=== PATIENT | female | born 1965 | race African-American/Black ===

== ENCOUNTER 2016-06-15 19:18 | Emergency (ER) | payer OTHER ==
[~2016-06-15] VITALS: Ht 172.7 cm; Wt 124.7 kg
[~2016-06-15 19:18] MED LIST: BENADRYL50 MG ORAL; CIPROFLOXACIN500 M2 ORAL; DIFLUCAN100 MG ORAL; NORCO 5-325 TA1 EACH ORAL; PERCOCET 5-3251 EACH ORAL; RANITIDINE HCL150 MG ORAL
[2016-06-15] MEDS ORDERED: UNOBMED (19:39)
[2016-06-15 20:00] VITALS: BP 144/69
--- NOTE | 2016-06-15 20:01 | Emergency Room Report ---
History of Present Illness General Chief Complaint: Chest Pain Source: Patient Present Illness HPI Patient is a 51-year-old female who presented after having intermittent chest pain. Patient stated that she been having intermittent pain to both legs as well as to her chest. She stated that pain moved all over. She denies any shortness of breath. Patient states that she had onset with neck movement. She states this is worse with supine position. Allergies: Coded Allergies: No Known Allergies (Unverified , 06/15/16) Patient History Past Medical History: see triage record Reviewed Nursing Documentation: PMH: Agreed, PSxH: Agreed Nursing Documentation-PMH Past Medical History: No History, Except For Hx Cardiac Problems: No Hx Hypertension: Yes Review of Systems All Other Systems: negative except mentioned in HPI Physical Exam Vital Signs Date Time Temp Pulse Resp B/P Pulse Ox O2 Delivery O2 Flow Rate FiO2 06/15/16 19:35 102 18 132/90 98 Room Air Sp02 EP Interpretation: reviewed, normal General Appearance: normal inspection, well appearing, no apparent distress, alert, GCS 15 Head: atraumatic ENT: normal ENT inspection, hearing grossly normal, normal voice Neck: normal inspection, full range of motion, supple, no bony tend Respiratory: normal inspection, lungs clear, normal breath sounds, no respiratory distress, no retraction, no wheezing Cardiovascular #1: regular rate, rhythm, no edema Gastrointestinal: normal inspection, normal bowel sounds, non tender, soft, no guarding, no hernia Genitourinary: no CVA tenderness Musculoskeletal: normal inspection, back normal, normal range of motion Neurologic: normal inspection, alert, oriented x3, responsive, quilt sewer III-XII nml as tested, speech normal Psychiatric: normal inspection, judgement/insight normal, mood/affect normal Skin: normal inspection, normal color, no rash Medical Decision Making Diagnostic Impression: Primary Impression: Atypical chest pain ER Course Patient presented for chest pain. Differential diagnosis included but was not limited to acute coronary syndrome, pulmonary embolism, pneumonia, aortic dissection, shingles, pneumothorax, aortic dissection, esophageal rupture, pericarditis. Because of complexity of patient's case laboratory testing and imaging studies were ordered. EKG interpreted by me showed normal sinus rhythm with rate of [address] or T wave changes. Labs Test 06/15/16 19:38 06/15/16 20:15 Urine HCG, Qualitative Negative Urine Opiates Screen Negative (NEGATIVE) Urine Barbiturates Screen Negative (NEGATIVE) Phencyclidine (PCP) Screen Negative (NEGATIVE) Urine Amphetamines Screen Negative (NEGATIVE) Urine Benzodiazepines Screen Negative (NEGATIVE) Urine Cocaine Screen Negative (NEGATIVE) Urine Marijuana (THC) Screen Positive (NEGATIVE) White Blood Count 9.7 K/UL (4.8-10.8) Red Blood Count 4.93 M/UL (4.20-5.40) Hemoglobin 14.3 G/DL (12.0-16.0) Hematocrit 42.8 % (37.0-47.0) Mean Corpuscular Volume 87 FL (80-99) Mean Corpuscular Hemoglobin 28.9 PG (27.0-31.0) Mean Corpuscular Hemoglobin Concent 33.3 G/DL (32.0-36.0) Red Cell Distribution Width 16.3 % (11.6-14.8) Platelet Count 220 K/UL (150-450) Mean Platelet Volume 7.5 FL (6.5-10.1) Neutrophils (%) (Auto) 71.4 % (45.0-75.0) Lymphocytes (%) (Auto) 21.7 % (20.0-45.0) Monocytes (%) (Auto) 5.2 % (1.0-10.0) Eosinophils (%) (Auto) 0.8 % (0.0-3.0) Basophils (%) (Auto) 0.9 % (0.0-2.0) D-Dimer 295 ng/mL (<500) Sodium Level 141 mEQ/L (135-145) Potassium Level 4.2 mEQ/L (3.4-4.9) Chloride Level 97 mEQ/L (98-107) Carbon Dioxide Level 31 mEQ/L (20-30) Anion Gap 13 (5-15) Blood Urea Nitrogen 17 mg/dL (7-23) Creatinine 1.3 mg/dL (0.5-0.9) Estimat Glomerular Filtration Rate 52.8 mL/min (>60) Glucose Level 115 mg/dL (74-106) Calcium Level 9.6 mg/dL (8.6-10.2) Magnesium Level 2.2 mg/dL (1.7-2.5) Total Bilirubin 0.3 mg/dL (0.0-1.2) Aspartate Amino Transf (AST/SGOT) < 5 U/L (5-40) Alanine Aminotransferase (ALT/SGPT) 32 U/L (3-33) Alkaline Phosphatase 95 U/L (35-104) Total Creatine Kinase 362 U/L (26-140) Creatine Kinase MB 5.0 ng/mL (< 3.8) Creatine Kinase MB Relative Index 1.3 Troponin I < 0.30 ng/mL (<=0.30) Total Protein 8.1 g/dL (6.6-8.7) Albumin 4.5 g/dL (3.5-5.2) Globulin 3.6 g/dL Albumin/Globulin Ratio 1.2 (1.0-2.7) EKG Diagnostic Results Rate: normal Rhythm: NSR ST Segments: no acute changes Rhythm Strip Diag. Results EP Interpretation: yes Rhythm: NSR, no PVC's, no ectopy Chest X-Ray Diagnostic Results EP Interpretation: Yes Findings: no consolidation, no effusion, no pneumothorax, no acute cardiopulmonary disease Number of Views: 1 Last Vital Signs Date Time Temp Pulse Resp B/P Pulse Ox O2 Delivery O2 Flow Rate FiO2 06/15/16 19:35 102 18 132/90 98 Room Air Status: improved Disposition: HOME, SELF-CARE Condition: Stable Scripts Ibuprofen* (MOTRIN*) 600 Mg Tablet 600 MG ORAL Q8H Y for For Pain, #30 TAB 0 Refills Prov: Xavi Solano 06/15/16 Xavi Solano Jun 15, 2016 20:01
[2016-06-15] MEDS ORDERED: Ketorolac 30mg Inj IV ONE (20:15)
[2016-06-15 20:27] LABS: BASOPHILS % (AUTO) 0.9 % (0.0-2.0); EOSINOPHILS % (AUTO) 0.8 % (0.0-3.0); LYMPHOCYTES % (AUTO) 21.7 % (20.0-45.0); MEAN CORPUSCULAR HEMOGLOBIN 28.9 PG (27.0-31.0); MEAN CORPUSCULAR HGB CONC 33.3 G/DL (32.0-36.0); MEAN CORPUSCULAR VOLUME 87 FL (80-99); MEAN PLATELET VOLUME 7.5 FL (6.5-10.1); MONOCYTES % (AUTO) 5.2 % (1.0-10.0); NEUTROPHILS % (AUTO) 71.4 % (45.0-75.0); PLATELET COUNT 220 K/UL (150-450); RED BLOOD COUNT 4.93 M/UL (4.20-5.40); RED CELL DISTRIBUTION WIDTH 16.3 % (11.6-14.8); WHITE BLOOD COUNT 9.7 K/UL (4.8-10.8)
[2016-06-15 20:48] LABS: ALANINE AMINOTRANSFERASE 32 U/L (3-33); ALBUMIN/GLOBULIN RATIO 1.2 (1.0-2.7); ANION GAP 13 (5-15); CALCIUM 9.6 mg/dL (8.6-10.2); CARBON DIOXIDE 31 mEQ/L (20-30); CHLORIDE 97 mEQ/L (98-107); CREATININE 1.3 mg/dL (0.5-0.9); GLOMERULAR FILTRATION RATE 52.8 mL/min (>60); HEMOLYSIS 7; POTASSIUM 4.2 mEQ/L (3.4-4.9); SODIUM 141 mEQ/L (135-145); TOTAL PROTEIN 8.1 g/dL (6.6-8.7)
[2016-06-15 20:51] LABS: TROPONIN I < 0.30 ng/mL (<=0.30)
[2016-06-15 21:06] LABS: ASPARTATE AMINO TRANSFERASE < 5 U/L (5-40)
[2016-06-15 21:14] VITALS: BP 118/56
[2016-06-15] MEDS ORDERED: IBUPROFEN600 MG ORAL (21:21)
[2016-06-15 21:36] VITALS: BP 118/56
--- NOTE | 2016-06-16 12:22 | Diagnostic Imaging Report ---
Indication: SOB Technique: One view of the chest Comparison: none Findings: Lung and pleural space are clear. Heart size is upper limits of normal. Calcific granuloma is again demonstrated in the left lower lung. No significant interim change. Impression: No acute process
--- NOTE | 2016-06-17 15:47 | Cardiology Report ---
APPROVED REPORT EKG Measurement Heart [id number] Normal sinus rhythm with sinus arrhythmia Normal ECG
== END 2016-06-15 21:37 | disposition home or self-care (01) ==
LOC: EMR 19:45
DX: R07.9 Chest pain, unspecified (principal); M79.605 Pain in left leg; M79.604 Pain in right leg; I10 Essential (primary) hypertension
CPT/HCPCS: 36415; 71010; 80053; 80300; 81025; 82550; 82553; 83735; 84484; 85025; 85379; 93005; 96374; 99284; J1885

== ENCOUNTER 2017-10-05 21:27 | Emergency (ER) | payer OTHER ==
[~2017-10-05] VITALS: Ht 165.1 cm; Wt 140.6 kg
[~2017-10-05 21:27] MED LIST changes: +IBUPROFEN600 MG ORAL; +UNOBMED
[2017-10-05 21:49] VITALS: BP 156/97
[2017-10-05] MEDS ORDERED: Albuterol ud Inhalation HHN ONE (22:00)
[2017-10-05] MEDS ORDERED: Ipratropium 0.02% Inh Soln 2.5ml UD HHN ONE (22:00)
--- NOTE | 2017-10-05 23:01 | Emergency Room Report ---
History of Present Illness General Chief Complaint: Upper Respiratory Illness Source: Patient Present Illness HPI This is a 52-year-old female with history hypertension. She presents with chief complaint of coughing and short of breath for 2 weeks now. Started with a viral congestion and a gun down to her lungs. She started to have fever the last couple days. Coughing is is productive of whitish sputum. Worse with exertion. Worse with inspiration. Having headache and nausea. Denies any sick contact. Never have a history of asthma. No chest pain. Allergies: Coded Allergies: No Known Allergies (Unverified , 06/15/16) Patient History Past Medical History: see triage record, old chart reviewed, HTN Past Surgical History: none Pertinent Family History: none Social History: Denies: smoking Last Menstrual Period: n/a Now: No Immunizations: other Reviewed Nursing Documentation: PMH: Agreed; PSxH: Agreed Nursing Documentation-PMH Past Medical History: No History, Except For Hx Cardiac Problems: No Hx Hypertension: Yes Review of Systems Constitutional: Reports: fever Eye: Denies: eye pain, blurred vision ENT: Denies: ear pain, nose congestion, throat swelling Respiratory: Reports: cough, shortness of breath Cardiovascular: Denies: chest pain, palpitations Gastrointestinal: Denies: abdominal pain, diarrhea, nausea, vomiting Musculoskeletal: Denies: back pain, joint pain Skin: Denies: rash Neurological: Denies: headache, numbness Endocrine: Denies: increased thirst, increased urine Hematologic/Lymphatic: Denies: easy bruising All Other Systems: negative except mentioned in HPI Physical Exam Vital Signs Date Time Temp Pulse Resp B/P (MAP) Pulse Ox O2 Delivery O2 Flow Rate FiO2 10/05/17 21:39 98.6 89 16 156/97 96 Room Air 98.6 vitals normal Sp02 EP Interpretation: reviewed, normal General Appearance: well appearing, no apparent distress, alert, obese Head: normocephalic, atraumatic Eyes: bilateral eye PERRL, bilateral eye EOMI ENT: hearing grossly normal, normal pharynx Neck: full range of motion, supple, no meningismus Respiratory: chest non-tender, decreased breath sounds, accessory muscle use, wheezing Cardiovascular #1: regular rate, rhythm, no murmur Gastrointestinal: normal bowel sounds, non tender, no mass, no organomegaly, no bruit, non-distended Musculoskeletal: back normal, gait/station normal, normal range of motion Psychiatric: mood/affect normal Skin: warm/dry Medical Decision Making Diagnostic Impression: Primary Impression: Atypical pneumonia Additional Impression: Acute bronchitis with bronchospasm ER Course Patient presents with acute bronchitis with bronchospasm. Because his been going on for 3 weeks and having fever now, we'll put her antibiotics for atypical pneumonia. She felt better after breathing treatment and steroid. Still coughing no evidence of rest or distress. No wheezing. No evidence of PE , dissection, ACS, CHF to name a few. Lab Results Impression labs normal Last Vital Signs Date Time Temp Pulse Resp B/P (MAP) Pulse Ox O2 Delivery O2 Flow Rate FiO2 10/05/17 22:43 86 20 Room Air 10/05/17 22:23 98.6 10/05/17 22:17 98 10/05/17 21:49 156/97 Status: improved Disposition: HOME, SELF-CARE Condition: Stable Scripts Azithromycin* (ZITHROMAX*) 250 Mg Tablet 250 MG ORAL DAILY, #6 TAB 0 Refills Take two tables once daily for 1 day, then one tablet once daily for 4 days. Prov: ADDISON CONCEPCION M.D. 10/05/17 Prednisone* (PREDNISONE*) 20 Mg Tablet 60 MG ORAL DAILY, #12 TAB Prov: ADDISON CONCEPCION M.D. 10/05/17 Albuterol Sulfate* (ALBUTEROL SULFATE MDI*) 8.5 Gm Hfa.aer.ad 2 PUFF INH Q4H PRN for cough/wheezing, #1 EA 0 Refills Prov: ADDISON CONCEPCION M.D. 10/05/17 Referrals: ARJUN DIAZ (PCP) Patient Instructions: Upper Respiratory Infection, Adult Additional Instructions: Follow-up with your DrBerry in 2 to 3 days. Return if symptom worsen. ADDISON CONCEPCION M.D. Oct 05, 2017 23:01
[2017-10-05 23:03] LABS: ANION GAP 8 mmol/L (5-15); BLOOD UREA NITROGEN 12 mg/dL (7-18); CARBON DIOXIDE 30 MMOL/L (21-32); CHLORIDE 106 MMOL/L (98-107); CREATININE 1.1 MG/DL (0.55-1.30); POTASSIUM 3.4 MMOL/L (3.5-5.1); SODIUM 144 MMOL/L (136-145)
[2017-10-05] MEDS ORDERED: Albuterol/Ipratropium 3ml neb HHN ONE (23:15)
[2017-10-05 23:16] LABS: EOSINOPHILS % (AUTO) 2.6 % (0.0-3.0); HEMATOCRIT 40.4 % (37.0-47.0); HEMOGLOBIN 12.9 G/DL (12.0-16.0); LYMPHOCYTES % (AUTO) 37.1 % (20.0-45.0); MEAN CORPUSCULAR VOLUME 83 FL (80-99); MONOCYTES % (AUTO) 7.2 % (1.0-10.0); NEUTROPHILS % (AUTO) 52.2 % (45.0-75.0); PLATELET COUNT 206 K/UL (150-450); RED BLOOD COUNT 4.89 M/UL (4.20-5.40); RED CELL DISTRIBUTION WIDTH 15.5 % (11.6-14.8); WHITE BLOOD COUNT 6.8 K/UL (4.8-10.8)
[2017-10-05] MEDS ORDERED: cefTRIAXone 1 GM in NS 55 ML IVPB ONE (23:30)
[2017-10-05] MEDS ORDERED: PREDNISONE20 MG ORAL (23:38)
[2017-10-05] MEDS ORDERED: ZITHROMAX250 MG ORAL (23:38)
[2017-10-05] MEDS ORDERED: ALBUTEROL SULF8.5 GM INH (23:38)
[2017-10-06 00:30] VITALS: BP 117/66
[2017-10-06 00:40] VITALS: BP 117/66
--- NOTE | 2017-10-06 10:22 | Diagnostic Imaging Report ---
Indication: Shortness of breath Technique: One view of the chest Comparison: For 12/25/2016 Findings: Body habitus limits evaluation. Less optimal inspiration currently. There is suggestion of mild interstitial congestion, although this may in part be an artifact of the suboptimal inspiration. No focal airspace consolidation. Pleural spaces are clear Impression: Equivocal mild pulmonary venous congestion. Correlate with clinical findings Cardiomegaly
== END 2017-10-06 00:40 | disposition home or self-care (01) ==
LOC: EMR 22:00
DX: J18.9 Pneumonia, unspecified organism (principal); J20.9 Acute bronchitis, unspecified; I10 Essential (primary) hypertension
CPT/HCPCS: 36415; 71045; 80048; 83880; 84484; 85025; 94640; 94664; 96365; 99284; J0696; J7512; J7620

== ENCOUNTER 2018-10-17 17:48 | Emergency (ER) | payer OTHER ==
[~2018-10-17] VITALS: Ht 167.6 cm; Wt 136.1 kg
[~2018-10-17 17:48] MED LIST changes: +ALBUTEROL SULF8.5 GM INH; +PREDNISONE20 MG ORAL; +ZITHROMAX250 MG ORAL
--- NOTE | 2018-10-17 18:33 | Emergency Room Report ---
History of Present Illness General Chief Complaint: Lower Extremity Injury Source: Patient Present Illness HPI 56-year-old female with history of morbid obesity here complaining of left knee that started 3 weeks ago after she was standing for prolonged time and she felt like the knee gave up on her and she feels like her knee is dislocated. Patient also complains of 3 months of right knee pain and reports that she had a referral for physical therapy with her primary care however she lost the referral. Patient denies any fall or injury. Denies calf tenderness and swelling. Rating the pain 7 out of 10 without radiation. Has taken ibuprofen with minimal relief. Patient has been able to bear weight on both knees for the past several months. Denies any recent injury. Denies chest pain, shortness of breath, palpitation, and other associated symptoms. Allergies: Coded Allergies: No Known Allergies (Unverified , 06/15/16) Patient History Past Medical History: see triage record Past Surgical History: unable to obtain Pertinent Family History: none Now: No Immunizations: UTD Reviewed Nursing Documentation: PMH: Agreed; PSxH: Agreed Nursing Documentation-PMH Past Medical History: No History, Except For Hx Cardiac Problems: No Hx Hypertension: Yes Review of Systems All Other Systems: negative except mentioned in HPI Physical Exam Vital Signs Date Time Temp Pulse Resp B/P (MAP) Pulse Ox O2 Delivery O2 Flow Rate FiO2 10/17/18 17:56 98.2 78 20 122/79 (93) 95 Room Air Sp02 EP Interpretation: reviewed, normal General Appearance: no apparent distress, alert, GCS 15, non-toxic Head: normocephalic, atraumatic Eyes: bilateral eye normal inspection, bilateral eye PERRL ENT: hearing grossly normal, normal pharynx, no angioedema, normal voice Neck: full range of motion, supple/symm/no masses Respiratory: chest non-tender, lungs clear, normal breath sounds, speaking full sentences Cardiovascular #1: regular rate, rhythm, no edema Cardiovascular #2: 2+ carotid (R), 2+ carotid (L), 2+ radial (R), 2+ radial (L) , 2+ dorsalis pedis (R), 2+ dorsalis pedis (L) Gastrointestinal: normal bowel sounds, non tender, soft, non-distended, no guarding, no rebound Rectal: deferred Genitourinary: normal inspection, no CVA tenderness Musculoskeletal: non-tender, no calf tenderness, swelling - Left knee however no laxity or signs of dislocation noted negative Andres's Neurologic: normal inspection, alert, oriented x3, responsive Psychiatric: judgement/insight normal, memory normal, mood/affect normal, no suicidal/homicidal ideation Skin: no rash Lymphatic: no adenopathy Procedures Splinting Splinting : Consent: Verbal Location: Left knee Pre-Made Type: knee immobilizer Pre-Proc Neuro Vasc Exam: normal Post-Proc Neuro Vasc Exam: normal Patient Tolerated: Well Complications: None Medical Decision Making PA Attestation All diagnoses and treatment plans were reviewed and discussed with my supervising physician Dr. Garcia Diagnostic Impression: Primary Impression: Left knee sprain Additional Impression: Chronic pain of right knee ER Course 56-year-old female with history of morbid obesity here complaining of left knee that started 3 weeks ago after she was standing for prolonged time and she felt like the knee gave up on her and she feels like her knee is dislocated. Patient also complains of 3 months of right knee pain and reports that she had a referral for physical therapy with her primary care however she lost the referral. Patient denies any fall or injury. Denies calf tenderness and swelling. Rating the pain 7 out of 10 without radiation. Has taken ibuprofen with minimal relief. Patient has been able to bear weight on both knees for the past several months. Denies any recent injury. Denies chest pain, shortness of breath, palpitation, and other associated symptoms. Ddx considered but are not limited to: Knee sprain, strain, fracture, contusion , meniscus tear injury Vital signs: are WNL, pt. is afebrile H&PE are most consistent with: Left knee sprain, chronic pain of right knee ORDERS: Knee x-ray, Toradol, ibuprofen 800, Voltaren gel ER intervention: Toradol IM, left knee immobilizer DISCHARGE: At this time pt. is stable for d/c to home. Will provide printed patient care instructions, and any necessary prescriptions. Care plan and follow up instructions have been discussed with the patient prior to discharge. A symptomatic knee immobilizer was applied to the left knee patient was advised to lose weight and follow-up with a primary care provider avoid strenuous physical activity physical therapy recommended if worsening symptoms, swelling in lower extremities return to the emergency room Other X-Ray Diagnostic Results Other X-Ray Diagnostic Results #1: X-Ray ordered: Left knee # of Views/Limited Vs Complete: 2 View Indication: Swelling EP Interpretation: Yes BHARAT Xray: Interpretation reviewed, by supervising MD, and agrees with findings. Interpretation: no dislocation, no soft tissue swelling, no fractures Impression: No acute disease Electronically Signed by: Randal Gomez PA-C Other X-Ray Diagnostic Results #2: X-Ray ordered: Right knee # of Views/Limited Vs Complete: 2 View Indication: Pain EP Interpretation: Yes PA Xray: Interpretation reviewed, by supervising MD, and agrees with findings. Interpretation: no dislocation, no soft tissue swelling, no fractures Impression: No acute disease Electronically Signed by: Randal Gomez PA-C Last Vital Signs Date Time Temp Pulse Resp B/P (MAP) Pulse Ox O2 Delivery O2 Flow Rate FiO2 10/17/18 17:56 98.2 78 20 122/79 (93) 95 Room Air Disposition: HOME, SELF-CARE Condition: Stable Scripts Diclofenac Sodium (VOLTAREN) 100 Gm Gel..gram. 2 GM TP TID, #100 GM Prov: Randal Hallman 10/17/18 Ibuprofen (Ibu) 800 Mg Tablet 800 MG PO TID, #30 TAB Prov: Randal Hallman 10/17/18 Patient Instructions: Knee Sprain Additional Instructions: Take medication as directed follow-up with your primary care provider for referral to physical therapist. Alternate between icing and heating the affected area elevate the affected area. Randal Hallman Oct 17, 2018 18:33
[2018-10-17] MEDS ORDERED: IBU800 MG PO (18:34)
[2018-10-17] MEDS ORDERED: VOLTAREN100 G1 TP (18:34)
[2018-10-17] MEDS ORDERED: Ketorolac 60mg Inj IM ONE (18:45)
[2018-10-17 18:47] VITALS: BP 122/79
--- NOTE | 2018-10-17 18:47 | NUR ---
ER DISCHARGE NOTE: Patient is cleared to be discharged per ERMD, pt is aox4, on room air, with stable vital signs. pt was given dc and prescription instructions, pt was able to verbalize understanding, pt id band removed. pt is able to ambulate with steady gait. pt took all belongings.
--- NOTE | 2018-10-18 11:16 | Diagnostic Imaging Report ---
INDICATION: Trauma. TECHNIQUE: XRAY Knee 1-2v L Multiple views of the left knee were obtained COMPARISON: None FINDINGS: There is no acute fracture or dislocation. There is mild tricompartmental osteoarthrosis. Trace knee joint effusion. No acute soft tissue abnormality. IMPRESSION: No acute fracture or dislocation.
--- NOTE | 2018-10-18 11:19 | Diagnostic Imaging Report ---
INDICATION: Trauma with pain. TECHNIQUE: XRAY Knee 1-2v R Multiple views of the right knee were obtained COMPARISON: Same day left knee radiographs. FINDINGS: There is no acute fracture or dislocation. Mild lateral and patellofemoral compartment osteoarthrosis and moderate medial compartment osteoarthritis. No knee joint effusion. No acute soft tissue abnormality. IMPRESSION: No acute fracture or dislocation.
== END 2018-10-17 18:47 | disposition home or self-care (01) ==
LOC: EMR 18:40
DX: S83.92XA Sprain of unspecified site of left knee, initial encounter (principal); G89.29 Other chronic pain; M25.561 Pain in right knee; I10 Essential (primary) hypertension; E66.01 Morbid (severe) obesity due to excess calories; Z68.42 Body mass index [BMI] 45.0-49.9, adult; X58.XXXA Exposure to other specified factors, initial encounter; Y92.9 Unspecified place or not applicable
CPT/HCPCS: 29505; 96372; 99283

== ENCOUNTER 2019-01-16 12:38 | Outpatient (CLI) | payer MEDICAID ==
[~2019-01-16] VITALS: Ht 165.1 cm; Wt 149.2 kg
[~2019-01-16 12:38] MED LIST changes: +IBU800 MG PO; +VOLTAREN100 G1 TP
[2019-01-16] MEDS ORDERED: AMLODIPINE BESY10 MG ORAL (15:10)
[2019-01-16 15:11] VITALS: BP 146/91
--- NOTE | 2019-01-16 18:30 | Consultation ---
DATE OF CONSULTATION: 01/16/2019 CHIEF COMPLAINT: Referral for screening colonoscopy. PAST MEDICAL HISTORY: 1. Hypertension. 2. Arthritis. PAST SURGICAL HISTORY: Breast reduction and . MEDICATIONS: Blood pressure medications including amlodipine. FAMILY HISTORY: Father had colon cancer. Mom had gastric cancer. SOCIAL HISTORY: The patient denies any drug use but she smokes and drinks. ALLERGIES: No known drug allergies. REVIEW OF SYSTEMS: Review of systems was performed and was negative. PHYSICAL EXAMINATION: VITAL SIGNS: Temperature 98, blood pressure 140/90, pulse 67, respiratory rate 20. HEENT: Normocephalic and atraumatic. Sclerae anicteric. NECK: Supple. No evidence of obvious lymphadenopathy. CARDIOVASCULAR: Regular rate and rhythm. Plus S1 and S2. No obvious murmur. LUNGS: Clear to auscultation bilaterally. ABDOMEN: Positive bowel sounds. Soft and nontender. No rebound. No guarding. No peritoneal sign. EXTREMITIES: No cyanosis. No clubbing. No edema. ASSESSMENT: The patient is a 53-year-old female, referred for followup screening colonoscopy. PLAN: The patient was given instruction and information about colonoscopy about the prep, she agreed to it. We are going to go ahead and schedule when authorization is obtained. Ap Rios M.D. DR: Jarett JOB#: [id number] CC:
== END 2019-01-16 14:38 | disposition home or self-care (01) ==
LOC: PAN 12:38
DX: Z01.818 Encounter for other preprocedural examination (principal); I10 Essential (primary) hypertension; M19.90 Unspecified osteoarthritis, unspecified site; F17.200 Nicotine dependence, unspecified, uncomplicated
CPT/HCPCS: G0463

== ENCOUNTER 2019-09-12 10:50 | Emergency (ER) | payer MEDICAID, OTHER ==
[~2019-09-12] VITALS: Ht 165.1 cm; Wt 136.1 kg
[~2019-09-12 10:50] MED LIST changes: +AMLODIPINE BESY10 MG ORAL
[2019-09-12 10:56] VITALS: BP 131/75
--- NOTE | 2019-09-12 10:56 | NUR ---
ED Nurse Note: Pt arrived to ED c/o cough with pink tinged sputum starting when she returned from her [place] trip this previous wednesday. pt has 99.2 low grade fever.
--- NOTE | 2019-09-12 11:23 | NUR ---
ED Nurse Note: xray at bedside
--- NOTE | 2019-09-12 11:30 | Emergency Room Report ---
History of Present Illness General Chief Complaint: Upper Respiratory Illness Source: Patient Present Illness HPI Patient is a 54-year-old female who presents to the ER complaining of cough with 1 episode of pink-tinged sputum. She denies any chest pain or shortness of breath. She denies any fever or chills. She denies any neck pain or rash. Patient is accompanied by her daughter who got sick 1 day after her. They just returned from a trip to [place]. Patient denies any abdominal pain, nausea or vomiting. Allergies: Coded Allergies: No Known Allergies (Unverified , 09/12/19) COVID-19 Screening Contact w/high risk pt: No Recent Travel to affected area: No Experienced COVID-19 symptoms?: Yes COVID-19 symptoms experienced: Cough, Runny Nose COVID-19 Testing performed PLATFORM STAPLER: No Patient History Last Menstrual Period: 10 years ago Reviewed Nursing Documentation: PMH: Agreed; PSxH: Agreed Nursing Documentation-PMH Past Medical History: No Stated History Review of Systems All Other Systems: negative except mentioned in HPI Physical Exam Vital Signs Date Time Temp Pulse Resp B/P (MAP) Pulse Ox O2 Delivery O2 Flow Rate FiO2 09/12/19 10:56 99.1 86 16 131/75 100 Room Air Sp02 EP Interpretation: reviewed, normal General Appearance: no apparent distress, alert, GCS 15, non-toxic Head: normocephalic, atraumatic Eyes: bilateral eye normal inspection, bilateral eye PERRL ENT: hearing grossly normal, normal pharynx, no angioedema, normal voice Neck: full range of motion, supple/symm/no masses Respiratory: chest non-tender, normal breath sounds, no respiratory distress, no retraction, no accessory muscle use, speaking full sentences Cardiovascular #1: regular rate, rhythm, no edema Gastrointestinal: normal bowel sounds, non tender, soft, non-distended, no guarding, no rebound Rectal: deferred Musculoskeletal: normal range of motion Neurologic: engraver III-XII nml as tested, oriented x3 Psychiatric: no suicidal/homicidal ideation Skin: no rash Lymphatic: no adenopathy Medical Decision Making Diagnostic Impression: Primary Impression: Bronchopneumonia Additional Impression: Upper respiratory infection ER Course Patient's x-ray has questionable bilateral pulmonary infiltrates versus poor inspiratory effort. Patient's vital signs are stable. She has no chest pain or shortness of breath. She is not hypoxic or tachycardic. Patient has history of smoking. We will treat her with azithromycin. Also questionable COVID-19 bronchitis. I have given her outpatient resources for testing. I explained to the patient patient presents to the emergency room with mild respiratory infection. I explained that this could be due to respiratory infection such as the cold, the flu or Coronavirus Disease. Most people with such infections can get better with appropriate home care and without the need to see a provider. People who are elderly, or have a weak immune system or other medical problems are at a higher risk of more serious illness or complications. I recommend that they carefully monitor their symptoms closely and seek medical care early if their symptoms get worse. I recommend rest, drinking plenty of fluids, taking [id number] cold and flu medications to reduce fever and pain. I noted that these medicines do not cure the illness and therefore do not stop them from spreading the germs. I recommend self quarantine for 14 days. Explained to the patient that we do not do routine Covid-19 testing for mild respiratory infections at [facility] in the Emergency Department. They may obtain it on an outpatient basis. I asked them to call their doctor before going to their office so they can prepare for their visit and note that the patient may have Covid-19. I recommend isolation until tests show that the patient does not have Covid-19 or they are told by the public health department or their primary care physician that they are no longer infectious. After discussing risks and benefits of further diagnostics, treatment plans, as well as indications for and risks of admission, the patient is agreeable to being discharged home. I have explained that their evaluation and treatment in the emergency department today is an important step towards them achieving better health but that their evaluation today is not intended to replace further evaluation and treatment by a physician in their local clinic. I have explained that while the current findings suggest no immediate life threatening emergency they will require further evaluation and treatment by a physician of their choice in their area. They understand that it will be necessary for them to review the final reports of their ED visit with their clinic physician. We have reviewed indications for return to the Emergency Department. I have explained that additional time may need to pass and/or additional testing as an outpatient may be necessary before a definitive diagnosis can be made. They tell me they are willing to follow up as instructed within the timeframe I recommend. They appear to understand what we discussed. Additionally they understand that if they are unable to be seen by an outpatient physician they are welcome, and in fact should, return to the Emergency Department for a repeat evaluation. The patient is stable at time of discharge. Chest X-Ray Diagnostic Results Chest X-Ray Diagnostic Results : Chest X-Ray Ordered: Yes # of Views/Limited/Complete: 1 View Indication: Other - cough EP Interpretation: Yes Interpretation: no effusion, no pneumothorax, other - Bilateral lower lobe infiltrate Impression: Other - possible pneumonia versus poor inspiratory effort Electronically Signed by: Priya Loredo MD Last Vital Signs Date Time Temp Pulse Resp B/P (MAP) Pulse Ox O2 Delivery O2 Flow Rate FiO2 09/12/19 10:56 86 16 Room Air 09/12/19 10:56 99.1 131/75 (93) 100 Disposition: HOME, SELF-CARE Condition: Stable Scripts Azithromycin* (ZITHROMAX*) 250 Mg Tablet 250 MG ORAL DAILY, #6 TAB 0 Refills Take two tables once daily for 1 day, then one tablet once daily for 4 days. Prov: Priya Loredo M.D. 09/12/19 Referrals: [facility],REFERRING (PCP) Additional Instructions: The patient was provided with discharge instructions, notified to follow-up with a primary care doctor and or specialist in the next 24-48 hours, and to return to the ED if they have worsening of their symptoms. Please note that this report is being documented using [employer] technology. This can lead to erroneous entry secondary to incorrect interpretation by the dictating instrument. Priya Loredo M.D. Sep 12, 2019 11:30
[2019-09-12] MEDS ORDERED: ZITHROMAX250 MG ORAL (11:40)
[2019-09-12 11:49] VITALS: BP 135/81
--- NOTE | 2019-09-12 12:37 | Diagnostic Imaging Report ---
Indication: Cough Technique: One view of the chest Comparison: none Findings: Body habitus limits evaluation. There are questionably bilateral mid and lower lung streaky parenchymal opacities. The heart is upper limits normal in size. Impression: Questionable bilateral mid and lower lungs streaky opacities, could represent early pneumonia if real. Correlate with clinical findings
== END 2019-09-12 11:48 | disposition home or self-care (01) ==
LOC: MERGE 11:17 → EMR 11:17
DX: J18.9 Pneumonia, unspecified organism (principal); J06.9 Acute upper respiratory infection, unspecified
CPT/HCPCS: 71045; Z7502; 99283

== ENCOUNTER 2019-10-19 17:58 | Emergency (ER) | payer MEDICAID, OTHER ==
[~2019-10-19] VITALS: Ht 165.1 cm; Wt 145.1 kg
[2019-10-19 18:30] VITALS: BP 148/90
--- NOTE | 2019-10-19 18:40 | Emergency Room Report ---
History of Present Illness General Chief Complaint: Pain Source: Patient Present Illness HPI 54-year-old female presents to the emergency department complaining of 7 out of 10 severity pain that she describes as tight muscle spasms in the left lower extremity. Patient reports she fell 2 months ago and has been having worsening of her symptoms. Patient reports having tenderness to the area located between the left knee and ankle. Patient is also taking diuretics for high blood pressure. Patient denies recent immobilization but she states she does walk with a limp. She denies recent travel. She denies fevers or chills. She denies open wounds or bleeding. She denies history of blood clots. Patient denies bruising. She reports smoking hx. No other aggravating or relieving factors. Patient denies chest pain, shortness of breath, headaches or dizziness. She denies history of hypercoagulopathy. 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 Allergies: Coded Allergies: No Known Allergies (Unverified , 06/15/16) COVID-19 Screening Contact w/high risk pt: No Experienced COVID-19 symptoms?: No COVID-19 Testing performed CUTTING AND SPLICING SUPERVISOR: No Patient History Past Medical History: see triage record, HTN Past Surgical History: none Pertinent Family History: none Last Menstrual Period: 8 years ago Now: No Reviewed Nursing Documentation: PMH: Agreed; PSxH: Agreed Nursing Documentation-PMH Past Medical History: No History, Except For Hx Cardiac Problems: Yes Hx Hypertension: Yes Hx Cancer: No Hx Gastrointestinal Problems: No Hx Neurological Problems: No Review of Systems All Other Systems: negative except mentioned in HPI Physical Exam Vital Signs Date Time Temp Pulse Resp B/P (MAP) Pulse Ox O2 Delivery O2 Flow Rate FiO2 10/19/19 18:02 99.0 90 17 148/90 (109) 98 Room Air Sp02 EP Interpretation: reviewed, normal General Appearance: no apparent distress, alert, GCS 15, non-toxic, obese Head: normocephalic, atraumatic Eyes: bilateral eye normal inspection, bilateral eye PERRL ENT: hearing grossly normal, normal voice Neck: full range of motion Respiratory: lungs clear, normal breath sounds, speaking full sentences Cardiovascular #1: regular rate, rhythm, no edema, normal capillary refill Cardiovascular #2: 2+ dorsalis pedis (R), 2+ dorsalis pedis (L) Musculoskeletal: normal range of motion, gait/station normal, tender - Lateral aspect of the left knee, posterior calf, and left ankle. Mild swelling noted on the left ankle. No pitting edema. Neurologic: alert, motor strength/tone normal, oriented x3, sensory intact, responsive, speech normal Psychiatric: judgement/insight normal Skin: no rash Medical Decision Making PA Attestation Dr. Solano is my supervising Physician whom patient management has been discussed with. Diagnostic Impression: Primary Impression: Muscle spasm Additional Impressions: Leg pain, left Achilles tendinitis, left leg ER Course 54-year-old female presents to the emergency department complaining of 7 out of 10 severity pain that she describes as tight muscle spasms in the left lower extremity. Patient reports she fell 2 months ago and has been having worsening of her symptoms. Patient reports having tenderness to the area located between the left knee and ankle. Patient is also taking diuretics for high blood pressure. Patient denies recent immobilization but she states she does walk with a limp. She denies recent travel. She denies fevers or chills. She denies open wounds or bleeding. She denies history of blood clots. Patient denies bruising. She reports smoking hx. No other aggravating or relieving factors. Patient denies chest pain, shortness of breath, headaches or dizziness. She denies history of hypercoagulopathy. 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 Ddx considered but are not limited to Cellulitis, DVT, varicose vein, PAD, Venous insufficiency, tendonitis, Sprain, fracture, muscle spasm, electrolyte imbalance just to name a few. Vital signs: are WNL, pt. is afebrile H&PE are most consistent with nonspecific left leg pain that is been progressive x2 months in morbidly obese patient which I believe has risk factors for blood clot as well. Will perform x-ray imaging to rule out musculoskeletal injury as well as ultrasound to rule out DVT. No evidence of infection. Will also assess electrolytes as patient is on diuretic (HcTz), and this may contribute to her sensation of having spasms. ORDERS: - BMP: WNL -- LE duplex U/s to R/O dvt. -X-rays ED INTERVENTIONS: -Steven wrap applied by recycling tech. Pt. remains neurovascularly intact. - Toradol IM -I do not identify an emergent condition at this time. With current presentation , pt. is stable for close outpatient follow up and conservative treatment. D/ w pt. to return promptly to ED with worsening or new symptoms.- Pt. verbalizes' understanding and agreement with proposed treatment plan. DISCHARGE: At this time pt. is stable for d/c to home. Will provide printed patient care instructions, and any necessary prescriptions. Care plan and follow up instructions have been discussed with the patient prior to discharge. Labs Test 10/19/19 18:35 Sodium Level 144 MMOL/L (136-145) Potassium Level 3.9 MMOL/L (3.5-5.1) Chloride Level 105 MMOL/L (98-107) Carbon Dioxide Level 33 MMOL/L (21-32) Anion Gap 7 mmol/L (5-15) Blood Urea Nitrogen 13 mg/dL (7-18) Creatinine 1.1 MG/DL (0.55-1.30) Estimat Glomerular Filtration Rate > 60 mL/min (>60) Glucose Level 102 MG/DL (74-106) Calcium Level 9.6 MG/DL (8.5-10.1) Other X-Ray Diagnostic Results Other X-Ray Diagnostic Results #1: X-Ray ordered: left Knee # of Views/Limited Vs Complete: 3 View Indication: Pain EP Interpretation: Yes PA Xray: Interpretation reviewed, by supervising MD, and agrees with findings. Interpretation: no dislocation, no soft tissue swelling, no fractures Impression: No acute disease Electronically Signed by: Lizzeth Angeles PA-C Other X-Ray Diagnostic Results #2: X-Ray ordered: Left ankle # of Views/Limited Vs Complete: 3 View Indication: Pain EP Interpretation: Yes PA Xray: Interpretation reviewed, by supervising MD, and agrees with findings. Interpretation: no dislocation, no soft tissue swelling, no fractures Impression: No acute disease Electronically Signed by: Lizzeth Angeles PA-C CT/MRI/US Diagnostic Results CT/MRI/US Diagnostic Results : Imaging Test Ordered: Venous Duplex US Left lower extremity. Impression "Negative for acute DVT "--Per official radiology report- Please see report for specific details. Last Vital Signs Date Time Temp Pulse Resp B/P (MAP) Pulse Ox O2 Delivery O2 Flow Rate FiO2 10/19/19 18:30 99.0 17 148/90 98 Room Air 10/19/19 18:02 90 Disposition: HOME, SELF-CARE Condition: Stable Referrals: [facility] Patient Instructions: Achilles Tendinitis, Muscle Cramps and Spasms, Easy-to- Read Additional Instructions: Take medications as directed. Follow up with a Primary Care Provider in 3-5 days, even if your symptoms have resolved. --Please review list of primary care clinics, if you do not already have a primary care provider Return sooner to ED if new symptoms occur, or current symptoms become worse. Do not drink alcohol, drive, or operate heavy machinery while taking Robaxin ( Muscle Relaxers) as this may cause drowsiness. - Please note that this Emergency Department Report was dictated using [employer] washer technology software, occasionally this can lead to erroneous entry secondary to interpretation by the dictation equipment. Lizzeth Angeles Oct 19, 2019 18:39
--- NOTE | 2019-10-19 19:06 | Diagnostic Imaging Report ---
EXAM: US Duplex Left Lower Extremity Veins CLINICAL HISTORY: PAIN TECHNIQUE: Real-time duplex ultrasound scan of the left lower extremity veins integrating B-mode two-dimensional vascular structure, Doppler spectral analysis, color flow Doppler imaging and compression. COMPARISON: No relevant prior studies available. FINDINGS: Deep veins: Unremarkable. No DVT in the visualized common femoral, femoral, proximal deep femoral or popliteal veins. The veins demonstrate normal color flow, are normally compressible, with normal phasic flow and/or augmentation response. Superficial veins: Unremarkable. No thrombus in the visualized great saphenous vein. IMPRESSION: No DVT
[2019-10-19 19:26] LABS: ANION GAP 7 mmol/L (5-15); BLOOD UREA NITROGEN 13 mg/dL (7-18); CALCIUM 9.6 MG/DL (8.5-10.1); CARBON DIOXIDE 33 MMOL/L (21-32); CHLORIDE 105 MMOL/L (98-107); CREATININE 1.1 MG/DL (0.55-1.30); POTASSIUM 3.9 MMOL/L (3.5-5.1); SODIUM 144 MMOL/L (136-145)
[2019-10-19] MEDS ORDERED: Ketorolac 30mg Inj IM ONE (20:15)
[2019-10-19] MEDS ORDERED: NAPROXEN500 M2 ORAL (20:23)
[2019-10-19] MEDS ORDERED: ROBAXIN-750750 MG PO (20:23)
[2019-10-19 20:25] VITALS: BP 144/79
--- NOTE | 2019-10-20 14:09 | Diagnostic Imaging Report ---
Indication: Left ankle pain Technique: 3 views of the left ankle Comparison: none Findings: There is a plantar and a calcaneal spur. No acute fractures. No dislocations. The joint spaces are preserved. Impression: No acute bony trauma
--- NOTE | 2019-10-20 15:05 | Diagnostic Imaging Report ---
Indication: Knee pain Technique: 3 views of the left knee Comparison: 10/17/2018 Findings: There are degenerative changes with medial compartment joint space narrowing and small tricompartment osteophytes. There is no acute fracture or dislocation. No suprapatellar joint effusion. No radiopaque foreign body. IMPRESSION: Degenerative changes, most pronounced at the medial compartment. No acute fracture or dislocation.
== END 2019-10-19 20:25 | disposition home or self-care (01) ==
LOC: EMR 18:25
DX: M62.831 Muscle spasm of calf (principal); M76.62 Achilles tendinitis, left leg; M79.605 Pain in left leg; E66.01 Morbid (severe) obesity due to excess calories; Z68.43 Body mass index [BMI] 50.0-59.9, adult; I10 Essential (primary) hypertension
CPT/HCPCS: 36415; 73562; 73610; 80048; 93971; 96372; J1885; Z7502; 99284